=== PATIENT | female | born 1985 | race Hispanic/Latino ===

== ENCOUNTER 2020-05-24 13:02 | Outpatient (CLI) | payer OTHER ==
--- NOTE | 2020-05-24 17:54 | EEG ---
DATE OF SERVICE: 05/24/2020 ATTENDING PHYSICIAN: Jayde Dougherty MD. This EEG was performed using 24-channel [employer] video digital EEG machine with 24-disk electrodes. This is a routine EEG recording. BACKGROUND: The posterior background rhythm is 9-10 hertz. The background rhythm attenuates with eye opening and enhances with eye closure. HYPERVENTILATION: No significant response seen with hyperventilation. PHOTIC STIMULATION: Bioccipital symmetric driving responses observed. SLEEP HISTORY: No stage change is observed. EEG DIAGNOSIS: Normal awake EEG. Job ID: [id number]
== END 2020-05-24 13:03 | disposition home or self-care (01) ==
LOC: EEG 13:02
DX: G40 Epilepsy and recurrent seizures (principal)
CPT/HCPCS: 36415; 80053; 80175; 80184; 85025; 95816